=== PATIENT | female | born 1985 | race Caucasian/White ===

== ENCOUNTER 2017-06-22 10:01 | Emergency (ER) | payer OTHER ==
[~2017-06-22] VITALS: Ht 154.9 cm; Wt 56.7 kg
[2017-06-22 10:57] LABS: INFLUENZA A ANTIGEN None Detected (None Detect); INFLUENZA B ANTIGEN None Detected (None Detect)
[2017-06-22] MEDS ORDERED: ZPAK PO (11:06)
[2017-06-22] MEDS ORDERED: MEDROLDOSEPACK PO (11:06)
[2017-06-22] MEDS ORDERED: MUCINEX D TABL1 EAC1 PO (11:06)
[2017-06-22 11:19] VITALS: BP 134/77
== END 2017-06-22 11:20 | disposition home or self-care (01) ==
LOC: M.ERS 10:01
PROVIDERS: Nurse Practitioner
DX: J20.9 Acute bronchitis, unspecified (principal)